=== PATIENT | female | born 1950 | race Caucasian/White ===

== ENCOUNTER 2022-10-06 10:01 | Inpatient (IN) | payer MEDICARE, OTHER ==
[~2022-10-06 10:01] MED LIST: Iopamidol-370 76% 500 ML MDV (1 ML CHARGE) ONE
[2022-10-06 12:57] LABS: Hemoglobin 13.1 g/dL (12.0-16.0); Mean Corpuscular HGB CONC 35.4 g/dL (32.0-36.0); Mean Corpuscular Hemoglobin 32.3 pg (27.0-31.0); Mean Corpuscular Volume 91.1 fl (78.0-98.0); Mean Platelet Volume 8.9 fL (7.4-10.4); Platelet Count 273 10x3/uL (130-400); RBC Distribution Width 12.5 % (11.5-14.5); Red Blood Cell (RBC) Count 4.06 mill/uL (4.20-5.40); White Blood Cell (WBC) Count 30.6 10x3/uL (4.8-10.8)
[2022-10-06] MEDS ORDERED: cefTRIAXone (ROCEPHIN) 1 GM VIAL ONE (12:59)
[2022-10-06 13:00] LABS: Delete Auto Diff?? YES; Manual Diff?? YES
[2022-10-06 13:23] LABS: ALT (SGPT) 13 U/L (8-55); AST (SGOT) 24 U/L (5-34); Albumin 4.3 g/dL (3.4-4.8); Alkaline Phosphatase 110 U/L (40-110); Anion Gap 17 mmol/L (10-20); BUN (Urea Nitrogen) 11 mg/dL (9.8-20.1); Bilirubin, Total 0.7 mg/dL (0.2-1.2); CK (CPK) 321 U/L (29-168); Calc. Creatinine Clearance 0 mL/min (70-130); Calcium 9.5 mg/dL (7.8-10.44); Carbon Dioxide 20 mmol/L (23-31); Chloride 94 mmol/L (98-107); Estimated GFR 74; Globulin 3.5 g/dL (2.4-3.5); Glucose 106 mg/dL (83-110); Lipase Less than 4 U/L (8-78); Magnesium 1.9 mg/dL (1.6-2.6); Potassium 3.9 mmol/L (3.5-5.1); Protein, Total 7.8 g/dL (5.8-8.1); Sodium 127 mmol/L (136-145)
[2022-10-06 13:26] LABS: Band 23 % (5-11); CellaVision Operator ID LAB.MJL; Lymphocytes 3 % (21-51); Monocytes 3 % (0-10); Neutrophil 71 % (42-75); Platelet Adequacy Comment Platelets Normal; Polychromasia SLIGHT = 2-3 cells HPF (0-2); Total Cell Count 100; Vacuoles SLIGHT
[2022-10-06] MEDS ORDERED: Azithromycin 500 MG VIAL ONE (14:00)
[2022-10-06] MEDS ORDERED: Ketorolac Tromethamine 30 MG/ML VIAL ONE (14:32)
[2022-10-06 15:54] LABS: SARS-CoV-2 NAA Rapid Test Not Detected (NotDetected)
[2022-10-06 16:26] VITALS: BMI 27.3
[2022-10-06] MEDS ORDERED: Calcium Carbonate 500 MG ChewTAB PO PRN (16:49)
[2022-10-06] MEDS ORDERED: Senokot S 8.6-50 MG TAB PO PRN (16:49)
[2022-10-06] MEDS ORDERED: Guaifenesin DM 100-10/5 ML UDCUP PO PRN (16:49)
[2022-10-06] MEDS ORDERED: Ondansetron PF 4 MG/2 ML Vial IVP PRN (16:49)
[2022-10-06] MEDS: Sodium Chloride 0.9% 1,000 ML IV SCH (17:17)
[2022-10-06] MEDS: Albuterol 200 PUFF (6.7GM INHALER) INH SCH ×2 (17:17→20:17)
[2022-10-06 18:24] LABS: Legionella Urinary Ag Negative (Negative); Strep pneumo Urine Ag NEGATIVE (NEGATIVE)
[2022-10-06] MEDS: Atorvastatin Calcium 20 MG TAB PO SCH (20:18)
[2022-10-07] MEDS: Acetaminophen 325 MG TAB PO PRN ×2 (04:26→08:39)
[2022-10-07] MEDS: Sodium Chloride 0.9% 1,000 ML IV SCH (04:31)
[2022-10-07 06:41] LABS: #Monocytes 1.4 thou/uL (0.11-0.59); #Neutrophils 16.8 thou/uL (1.40-6.50); %Basophils 0.2 % (0.0-1.0); %Eosinophils 0.1 % (0.0-10.0); %Lymphocytes 5.8 % (21.0-51.0); %Monocytes 7.3 % (0.0-10.0); Mean Corpuscular HGB CONC 34.8 g/dL (32.0-36.0); Mean Corpuscular Hemoglobin 32.5 pg (27.0-31.0); Mean Corpuscular Volume 93.2 fl (78.0-98.0); Mean Platelet Volume 9.2 fL (7.4-10.4); Platelet Count 228 10x3/uL (130-400); RBC Distribution Width 12.8 % (11.5-14.5); Red Blood Cell (RBC) Count 3.08 mill/uL (4.20-5.40); White Blood Cell (WBC) Count 19.5 10x3/uL (4.8-10.8)
[2022-10-07 07:08] LABS: Anion Gap 10 mmol/L (10-20); BUN (Urea Nitrogen) 11 mg/dL (9.8-20.1); Calc. Creatinine Clearance 74 mL/min (70-130); Calcium 8.4 mg/dL (7.8-10.44); Carbon Dioxide 20 mmol/L (23-31); Chloride 97 mmol/L (98-107); Estimated GFR 92; Glucose 84 mg/dL (83-110); Potassium 3.3 mmol/L (3.5-5.1); Sodium 124 mmol/L (136-145)
[2022-10-07] MEDS: Losartan 25 MG TAB PO SCH (08:39)
[2022-10-07] MEDS: Albuterol 200 PUFF (6.7GM INHALER) INH SCH ×4 (09:15→19:53)
[2022-10-07] MEDS: cefTRIAXone\\ROCEPHIN 1 GM in Sodium Chloride 0.9% 100 ML IVPB SCH (13:08)
[2022-10-07] MEDS: Azithromycin 500 MG in Sodium Chloride 0.9% 250 ML 250 ML IVPB SCH (14:25)
[2022-10-07 19:02] LABS: Anion Gap 10 mmol/L (10-20); BUN (Urea Nitrogen) 13 mg/dL (9.8-20.1); Calc. Creatinine Clearance 68 mL/min (70-130); Carbon Dioxide 22 mmol/L (23-31); Chloride 98 mmol/L (98-107); Estimated GFR 85; Glucose 82 mg/dL (83-110); Potassium 3.4 mmol/L (3.5-5.1); Sodium 127 mmol/L (136-145)
[2022-10-07] MEDS: Atorvastatin Calcium 20 MG TAB PO SCH (20:13)
[2022-10-08 07:49] LABS: #Monocytes 0.9 thou/uL (0.11-0.59); #Neutrophils 8.1 thou/uL (1.40-6.50); %Basophils 0.3 % (0.0-1.0); %Eosinophils 0.3 % (0.0-10.0); %Monocytes 8.8 % (0.0-10.0); %Neutrophils 79.1 % (42.0-75.0); Hemoglobin 11.4 g/dL (12.0-16.0); Mean Corpuscular HGB CONC 34.9 g/dL (32.0-36.0); Mean Corpuscular Hemoglobin 32.4 pg (27.0-31.0); Mean Corpuscular Volume 92.9 fl (78.0-98.0); Mean Platelet Volume 9.1 fL (7.4-10.4); Platelet Count 342 10x3/uL (130-400); RBC Distribution Width 12.8 % (11.5-14.5); Red Blood Cell (RBC) Count 3.52 mill/uL (4.20-5.40); White Blood Cell (WBC) Count 10.2 10x3/uL (4.8-10.8)
[2022-10-08] MEDS: Losartan 25 MG TAB PO SCH (08:25)
[2022-10-08] MEDS: Acetaminophen 325 MG TAB PO PRN (08:27)
[2022-10-08] MEDS: Albuterol 200 PUFF (6.7GM INHALER) INH SCH ×4 (09:44→19:24)
[2022-10-08 10:16] LABS: Anion Gap 10 mmol/L (10-20); BUN (Urea Nitrogen) 8 mg/dL (9.8-20.1); Calc. Creatinine Clearance 72 mL/min (70-130); Calcium 9.1 mg/dL (7.8-10.44); Carbon Dioxide 24 mmol/L (23-31); Chloride 102 mmol/L (98-107); Estimated GFR 91; Glucose 89 mg/dL (83-110); Potassium 3.2 mmol/L (3.5-5.1); Sodium 133 mmol/L (136-145)
[2022-10-08] MEDS: cefTRIAXone\\ROCEPHIN 1 GM in Sodium Chloride 0.9% 100 ML IVPB SCH (12:08)
[2022-10-08] MEDS: Azithromycin 500 MG in Sodium Chloride 0.9% 250 ML 250 ML IVPB SCH (13:28)
[2022-10-08] MEDS: Potassium Chloride 20 MEQ TAB PO SCH ×2 (13:28→17:46)
[2022-10-08] MEDS: Atorvastatin Calcium 20 MG TAB PO SCH (21:18)
[2022-10-09 06:06] LABS: #Eosinphils 0.1 thou/uL (0.0-0.7); #Monocytes 0.8 thou/uL (0.11-0.59); #Neutrophils 4.9 thou/uL (1.40-6.50); %Basophils 0.4 % (0.0-1.0); %Eosinophils 1.4 % (0.0-10.0); %Lymphocytes 19.2 % (21.0-51.0); %Monocytes 11.4 % (0.0-10.0); %Neutrophils 66.6 % (42.0-75.0); Hemoglobin 10.6 g/dL (12.0-16.0); Mean Corpuscular HGB CONC 34.4 g/dL (32.0-36.0); Mean Corpuscular Hemoglobin 31.6 pg (27.0-31.0); Mean Corpuscular Volume 91.9 fl (78.0-98.0); Mean Platelet Volume 8.9 fL (7.4-10.4); Platelet Count 313 10x3/uL (130-400); Red Blood Cell (RBC) Count 3.35 mill/uL (4.20-5.40); White Blood Cell (WBC) Count 7.3 10x3/uL (4.8-10.8)
[2022-10-09 06:41] LABS: Anion Gap 11 mmol/L (10-20); BUN (Urea Nitrogen) 9 mg/dL (9.8-20.1); Calc. Creatinine Clearance 76 mL/min (70-130); Carbon Dioxide 23 mmol/L (23-31); Chloride 106 mmol/L (98-107); Estimated GFR 93; Glucose 94 mg/dL (83-110); Potassium 4.3 mmol/L (3.5-5.1); Sodium 136 mmol/L (136-145)
[2022-10-09] MEDS: Albuterol 200 PUFF (6.7GM INHALER) INH SCH ×2 (07:30→11:50)
[2022-10-09] MEDS: Acetaminophen 325 MG TAB PO PRN ×2 (08:04→13:51)
[2022-10-09] MEDS: Losartan 25 MG TAB PO SCH (08:05)
[2022-10-09] MEDS: cefTRIAXone\\ROCEPHIN 1 GM in Sodium Chloride 0.9% 100 ML IVPB SCH (13:17)
[2022-10-09 13:47] VITALS: BP 159/65; TEMP 98.2
== END 2022-10-09 13:56 | disposition home health service (06) | DRG 871 ==
LOC: ERS 10:01 → T4-B 14:50
PROVIDERS: ADMIT Internal Medicine; ATTEND Internal Medicine
DX: A41.9 Sepsis, unspecified organism (principal); J18.9 Pneumonia, unspecified organism; E87.1 Hypo-osmolality and hyponatremia; Z20.822 Contact with and (suspected) exposure to COVID-19; E78.5 Hyperlipidemia, unspecified; I12.9 Hypertensive chronic kidney disease with stage 1 through stage 4 chronic kidney disease, or unspecified chronic kidney disease; R91.8 Other nonspecific abnormal finding of lung field; N18.1 Chronic kidney disease, stage 1; E87.6 Hypokalemia; Z88.1 Allergy status to other antibiotic agents; Z88.8 Allergy status to other drugs, medicaments and biological substances; Z82.49 Family history of ischemic heart disease and other diseases of the circulatory system; Z79.899 Other long term (current) drug therapy
CPT/HCPCS: 36415; 36416; 70450; 70551; 71045; 71260; 72125; 72128; 72131; 80048; 80053; 82550; 83605; 83690; 83735; 83880; 83930; 83935; 84300; 84443; 84484; 85025; 87040; 87070; 87077; 87186; 87205; 87449; 87899; 93005; 96365; 96367; 96375; J0456; J0696; J1650; J1885; J3490; J7050; Q9967

== ENCOUNTER 2022-11-24 08:03 | Outpatient (CLI) | payer MEDICARE, OTHER | END 2022-11-24 08:04 | disposition home or self-care (01) | LOC: CT 08:03 | PROVIDERS: ATTEND Internal Medicine | DX: R91.1 Solitary pulmonary nodule (principal) | CPT/HCPCS: 71250 ==